=== PATIENT | female | born 1950 | race Caucasian/White ===

== ENCOUNTER 2017-01-11 08:35 | Day surgery (SDC) | payer BC ==
[2017-01-10 14:18] VITALS: BMI 24.7
[2017-01-11] MEDS ORDERED: BUPIVACAINE HCL/PF 0.5% (5MG/ML) 10 ML VIAL ONE (10:09)
[2017-01-11] MEDS ORDERED: MIDAZOLAM HCL 2 MG/2 ML SINGLE DOSE VIAL ONE ×3 (10:21→11:13)
[2017-01-11] MEDS ORDERED: LIDOCAINE HCL 1%, 10 MG/ML (20ML VIAL) ONE (10:21)
[2017-01-11] MEDS ORDERED: BUPIVACAINE HCL/PF 0.5% (5MG/ML) 10 ML VIAL PNB ONE ×2 (10:25→12:12)
[2017-01-11] MEDS ORDERED: LIDOCAINE HCL 1%, 10 MG/ML (20ML VIAL) PNB ONE (10:25)
[2017-01-11] MEDS ORDERED: ceFAZolin SODIUM 1 GM VIAL IVPB ONE (10:39)
[2017-01-11] MEDS ORDERED: PROPOFOL 20 ML ONE (10:40)
[2017-01-11] MEDS ORDERED: DEXAMETHASONE SOD PHOSPHATE 4 MG/1 ML VIAL ONE (11:58)
[2017-01-11] MEDS ORDERED: ceFAZolin SODIUM 1 GM VIAL ONE (12:01)
[2017-01-11] MEDS ORDERED: DEXAMETHASONE SOD PHOSPHATE 4 MG/1 ML VIAL NR ONE (12:12)
[2017-01-11] MEDS ORDERED: ONDANSETRON 4 MG/2 ML VIAL IVPUSH PRN (12:23)
[2017-01-11] MEDS ORDERED: PROMETHAZINE HCL 25 MG/1 ML VIAL IVPUSH PRN (12:23)
[2017-01-11] MEDS ORDERED: oxyCODONE HCL 5 MG TABLET PO PRN (12:23)
[2017-01-11 13:06] VITALS: TEMP 97.8
[2017-01-11 17:12] VITALS: BP 142/74; PULSE 78
--- NOTE | 2017-01-15 18:01 | PATH ---
Surgical Pathology Report Patient Name: GHAZALA MATIAS [facility]. Rec. #: [id number] /Age/Gender: 1950 (Age: 66) / F Account: [id number] Location: [facility] SURGICAL Taken: 01/11/2017 Received: 01/11/2017 Reported: 01/15/2017 Physicians: Clayton Hernandez Specimen(s) Received BONE FROM RIGHT FOOT Clinical History Right foot hammer toe and bunion Final Diagnosis FOOT, BONE AND SOFT TISSUE, RIGHT, EXCISION: BONE AND CARTILAGE WITH DEGENERATIVE CHANGES AND SCANT FIBROUS TISSUE. Electronically Signed Dena Figueroa M.D. Gross Description Received in formalin labelled "right foot bone and soft tissue" is a 2.0 x 0.4 cm portion of unremarkable skin, along with 5 portions of bony tissue measuring in aggregate 2.0 x 1.4 x 0.4 cm. Some pieces of bone have attached articular cartilage. The bone of the cut surfaces is term and uniform. Coil Repair Technician sections are submitted in one cassette for decalcification. [facility]/01/12/2017 [facility]/01/12/2017
--- NOTE | 2017-01-16 12:02 | OP ---
DATE OF OPERATION: 01/11/2017 PREOPERATIVE DIAGNOSES: Painful right foot bunion and painful right foot 2nd hammertoe. POSTOPERATIVE DIAGNOSES: Painful right foot bunion and painful right foot 2nd hammertoe. SURGEON: Madison Marcial DPM and also Murray Olson DPM CORONARY CARE UNIT NURSE: Drea Patterson, PGY-2 ANESTHESIA: Local with IV sedation. OPERATION: Right foot great toe Eirc bunionectomy and right foot 2nd digit arthroplasty. PATHOLOGY: Right foot 2nd toe bone and soft tissue. HEMOSTASIS: Right ankle tourniquet at 250 mmHg and electrocautery. ESTIMATED BLOOD LOSS: Less than 1 mL. MATERIALS USED: 2-0 Vicryl suture, 3-0 Vicryl suture, 4-0 Vicryl suture, and 5-0 Vicryl suture and 4-0 nylon suture. Also, 14-mm long x 2.4-mm lag screw from [employer] used. INJECTABLES: 22 mL of 1:1 mixture of 1% lidocaine plain and 0.5% Marcaine plain used preoperatively and 10 mL of 8:2 mixture of 0.5% Marcaine plain and 4 mg dexamethasone used postoperatively at the surgical site. CONDITION OF THE PATIENT: Stable. FINDING AND PROCEDURE: The patient was brought to the operating room and placed on the operating room table in the supine position. After IV sedation was initiated, exactly 22 mL of 1:1 mixture of 1% lidocaine plain and 0.5% Marcaine plain were infiltrated throughout the surgical site to the right foot. Local anesthesia was also injected to the great toe and the 2nd toe dorsally and plantarly. Then, the right foot was scrubbed, prepped, and draped in the usual aseptic fashion. Upon exsanguination of the right foot with an Esmarch bandage and placement of the padding at the right ankle, the pneumatic ankle tourniquet was inflated to 250 mmHg. Surgery began in the following manner. Attention was first directed to the dorsal aspect of the right foot, 1st metatarsal head of the right foot where a linear incision was made on the dorsomedial aspect of the 1st MPJ parallel to the tendon of the extensor hallucis longus. The incision was then deepened through the subcutaneous tissue using sharp and blunt dissection. Care was taken to identify all the vital neural and vascular structures. All bleeders were then ligated and cauterized as necessary. At this time, a linear capsulotomy was then performed over the dorsomedial aspect of the 1st metatarsophalangeal joint. The periosteal and capsular structures were carefully dissected medially and laterally, thus exposing the head of the 1st metatarsal. Attention was then directed to the medial aspect of the 1st metatarsophalangeal joint. Using a sagittal saw, the medial prominence was then resected and removed from the operative field. Retraction was then redirected toward better visualization of the 1st metatarsal head. A [id number] Chevron-type osteotomy with a long dorsal arm was then created utilizing a sagittal saw. The apex pointed distally. The capital fragment was then shifted laterally to improve the position and was then impacted into the head of the metatarsal shaft. A 0.045-inch K-wire was then across the osteotomy site to provide temporary fixation. Then, a 2.4-mm and 14-mm long [employer]oMed cannulated screw was inserted across the osteotomy site and providing excellent compression and fixation. The initial K-wire fixator was then removed. Attention was then directed to the medial aspect of the 1st metatarsal. A medial bone shelf was then noted and was resected using a sagittal saw and removed from the operative field. Using sagittal saw, the dorsal osteophytes were resected and removed from the operative field, and better range of motion at the 1st MPJ was noted dorsally. The wound was then flushed with copious amount of normal saline. The periosteal and capsular sutures were reapproximated using 2-0, 3-0, and 4-0 Vicryl sutures, and subcutaneous tissue was then closed with a 4-0 Vicryl suture. Skin edges were then coapted utilizing a 4-0 nylon suture. Next, attention was brought to the right foot 2nd toe where a semi-elliptical incision was made on dorsal aspect of the proximal interphalangeal joint, and a skin wedge was cut and removed from the operative field. Then, the incision deepened to the subcutaneous tissue with care taken not to disturb the neurovascular structures of the 2nd digit both medially and laterally. The extensor tendon was then tenotomized and capsulotomy performed to release the head of the proximal phalanx of the 2nd digit, right foot. All bleeders were then cauterized and ligated as necessary. The right foot 2nd toe proximal phalanx head was then partially amputated and resected using a sagittal saw and removed from the operative field and sent to Pathology. Incision site was then irrigated with copious amount of normal saline and dried. The extensor tendon was sutured using a 3-0 Vicryl suture and skin closed using a 4-0 nylon suture in a simple suture fashion. Upon completion of the procedure, a total of 10 mL of 8:2 mixture of 0.5% Marcaine plain and 4 mg dexamethasone was infiltrated across the surgical site. Incision was then dressed with Betadine-soaked Adaptic and dry sterile gauze and then covered with sterile compressive dressing such as Betadine-soaked 4 x 4, ABD pad, Alberto, and Luis Alberto bandage. The tourniquet was then deflated and immediate hyperemia returned to all the digits of the right foot. The patient tolerated the procedure and anesthesia well and was transferred to the recovery room with all vital signs stable and vascular status intact to the right foot. Following postoperative monitoring, the patient will be discharged and was already given the instruction and prescriptions which were discussed prior to the surgery. Drea Patterson, PGY-2 dictating for WM Ferrer DPM [id number]
== END 2017-01-11 15:00 | disposition home or self-care (01) ==
LOC: JASU-SURG 08:35
PROVIDERS: ATTEND Podiatrist Foot Surgery
PROC: 0SRP0JZ Replacement of Right Toe Phalangeal Joint with Synthetic Substitute, Open Approach (ICD-10-PCS; principal; 2017-01-11 10:00)
PROC: 0QSN0ZZ Reposition Right Metatarsal, Open Approach (ICD-10-PCS; 2017-01-11 10:00)
DX: M21.611 Bunion of right foot (principal); M20.41 Other hammer toe(s) (acquired), right foot
CPT/HCPCS: 73630-TC-RT; 88304-TC; 88311-TC; 97116-GP

== ENCOUNTER 2024-01-08 04:10 | Day surgery (SDC) | payer OTHER, BC ==
[2024-01-04 10:47] VITALS: BMI 25.1
[2024-01-08 06:12] VITALS: TEMP 97.5
[2024-01-08] MEDS ORDERED: ACETAMINOPHEN INJECTION 100 ML ONE (07:06)
[2024-01-08] MEDS ORDERED: DEXMEDETOMIDINE HCL 200 MCG/2 ML IVPB ONE (07:06)
[2024-01-08] MEDS ORDERED: LIDOCAINE HCL 2% (20ML MULTI-DOSE VIAL) ONE (07:10)
[2024-01-08] MEDS ORDERED: BUPIVACAINE HCL/PF 0.5% (5MG/ML) 10 ML VIAL ONE ×2 (07:10→07:41)
[2024-01-08] MEDS ORDERED: LIDOCAINE HCL 1%, 10 MG/ML (20ML VIAL) ONE (07:19)
[2024-01-08] MEDS ORDERED: GENTAMICIN SO4 80 MG/2 ML VIAL ONE (07:40)
[2024-01-08] MEDS ORDERED: DEXAMETHASONE SOD PHOSPHATE 4 MG/1 ML VIAL ONE ×2 (07:40→07:48)
[2024-01-08] MEDS ORDERED: oxyCODONE HCL 5 MG TABLET PO PRN (07:44)
[2024-01-08] MEDS ORDERED: LACTATED RINGERS SOLUTION 1,000 ML IV SCH (07:45)
[2024-01-08] MEDS ORDERED: MIDAZOLAM HCL 2 MG/2 ML SINGLE DOSE VIAL ONE (07:47)
[2024-01-08] MEDS ORDERED: ONDANSETRON 4 MG/2 ML VIAL ONE (07:48)
[2024-01-08] MEDS ORDERED: ceFAZolin SODIUM 1 GM VIAL ONE (07:48)
[2024-01-08] MEDS: LIDOCAINE HCL 1%, 10 MG/ML (20ML VIAL) INF ONE ×2 (07:58)
[2024-01-08] MEDS: BUPIVACAINE HCL/PF 0.5% (5MG/ML) 10 ML VIAL IJ ONE ×2 (07:58)
[2024-01-08] MEDS: ceFAZolin 2 GRAM PREMIX BAG IVPB ONE (08:00)
[2024-01-08] MEDS: GENTAMICIN SO4 80 MG/2 ML VIAL IVPB ONE (08:10)
[2024-01-08] MEDS ORDERED: PHENYLEPHRINE HCL 10 MG/1 ML SINGLE DOSE VIAL ONE (08:27)
[2024-01-08] MEDS: DEXAMETHASONE SOD PHOSPHATE 10 MG/1 ML VIAL IVPUSH ONE ×2 (08:41→08:50)
[2024-01-08] MEDS ORDERED: KETOROLAC TROMETHAMINE 30 MG/1 ML VIAL ONE (08:50)
[2024-01-08 09:06] VITALS: BP 101/62; PULSE 74; RESP 14
== END 2024-01-08 12:23 | disposition home or self-care (01) ==
LOC: JASU-SURG 04:10
PROVIDERS: ATTEND Podiatrist Foot Surgery
PROC: 0L8V0ZZ Division of Right Foot Tendon, Open Approach (ICD-10-PCS; principal; 2024-01-08 07:30)
DX: M20.41 Other hammer toe(s) (acquired), right foot (principal); M20.11 Hallux valgus (acquired), right foot
CPT/HCPCS: 28285; 28299; C1713; 73630-TC-RT-FY; 88305-TC; 88311-TC; J0131; J1100